=== PATIENT | female | born 1955 | race Caucasian/White ===

== ENCOUNTER 2020-09-20 13:04 | Inpatient (IN) | payer MEDICAID, SELFPAY ==
[~2020-09-20] VITALS: Ht 152.4 cm; Wt 85.5 kg
[2020-09-20 13:06] VITALS: Ht 152.4 cm; Wt 85.5 kg
[2020-09-20 14:24] LABS: BASOPHIL % 0.3 % (0-2); PLATELET COUNT 144 x10^3mcL (130-400)
[2020-09-20 14:25] LABS: CALCIUM 9.7 mg/dL (8.5-10.1); CARBON DIOXIDE 29.4 mmol/L (21-32); CHLORIDE SERUM 106 mmol/L (98-107); CREATININE SERUM 0.8 mg/dL (0.6-1.0); GFR1 > 60 mL/min; GLUCOSE SERUM 211 mg/dL (74-106); POTASSIUM SERUM 4.3 mmol/L (3.5-5.1); SODIUM SERUM 140 mmol/L (136-145)
[2020-09-20 14:29] LABS: ALBUMIN 3.4 g/dL (3.4-5.0); ALKALINE PHOSPHATASE 127 U/L (46-116); ALT/SGPT 52 U/L (14-59); AST/SGOT 48 U/L (15-37); BILIRUBIN TOTAL 0.6 mg/dL (0.20-1.00); C REACTIVE PROTEIN 1.7 mg/dL (<=0.9); LACTIC DEHYDROGENASE (LDH) 240 U/L (100-190); TOTAL PROTEIN, SERUM 6.9 g/dL (6.4-8.2)
[2020-09-20 14:57] LABS: UA SPECIFIC GRAVITY 1.015 (1.005-1.035); microscopic required? YES; urine erythrocyte NEGATIVE (NEGATIVE)
[2020-09-20] MEDS ORDERED: ASPIRIN CHILDRE81 MG (16:16)
[2020-09-20] MEDS ORDERED: SIMVASTATIN5 M2 PO (16:16)
[2020-09-20] MEDS ORDERED: INSULIN SYRING1 EA29 MC (16:17)
[2020-09-20] MEDS ORDERED: GRALISE600 MG PO (16:18)
[2020-09-20] MEDS ORDERED: ACID REDUCER20 MG PO (16:18)
[2020-09-20] MEDS ORDERED: FORTAMET500 M1 PO (16:18)
[2020-09-20 16:24] LABS: FREE T4 0.97 ng/dL (0.76-1.46); FREE THYROXINE INDEX 2.3 ug/dL (1.4-4.5); T4(THYROXINE) 7.5 ug/dL (4.7-13.3)
[2020-09-20 16:43] LABS: T3 TOTAL 1.09 ng/mL
[2020-09-20 17:02] VITALS: BP 137/59
[2020-09-20 21:43] VITALS: BP 139/50
[2020-09-21 06:39] VITALS: BP 127/55
[2020-09-21 07:14] LABS: BASOPHIL % 0.3 % (0-2); PLATELET COUNT 138 x10^3mcL (130-400)
[2020-09-21 07:44] LABS: CALCIUM 9.3 mg/dL (8.5-10.1); CARBON DIOXIDE 33.6 mmol/L (21-32); CHLORIDE SERUM 106 mmol/L (98-107); CREATININE SERUM 0.8 mg/dL (0.6-1.0); GFR1 > 60 mL/min; GLUCOSE SERUM 184 mg/dL (74-106); MAGNESIUM 1.1 mg/dL (1.8-2.4); PHOSPHOROUS 3.9 mg/dL (2.5-4.9); POTASSIUM SERUM 4.3 mmol/L (3.5-5.1); SODIUM SERUM 144 mmol/L (136-145)
[2020-09-21 09:04] VITALS: BP 134/40
[2020-09-21 09:12] LABS: RED CELL DISTRIBUTION WIDTH 15.7 % (11.5-14.5)
[2020-09-21 14:01] VITALS: BP 146/56
[2020-09-21 17:36] VITALS: BP 160/77
[2020-09-21 20:22] VITALS: BP 130/43
[2020-09-22 06:04] VITALS: BP 159/59
[2020-09-22 06:53] LABS: BASOPHIL % 0.4 % (0-2); PLATELET COUNT 132 x10^3mcL (130-400)
[2020-09-22 07:08] LABS: MAGNESIUM 1.7 mg/dL (1.8-2.4); PHOSPHOROUS 4.4 mg/dL (2.5-4.9); POTASSIUM SERUM 4.2 mmol/L (3.5-5.1)
[2020-09-22 08:15] LABS: RED CELL DISTRIBUTION WIDTH 14.8 % (11.5-14.5)
[2020-09-22 08:32] VITALS: BP 173/60
[2020-09-22] MEDS ORDERED: APAP EXTRA STR500 MG PO (12:02)
[2020-09-22] MEDS ORDERED: IBU600 M2 PO (12:04)
[2020-09-22] MEDS ORDERED: MICROZIDE12.5 MG PO (12:12)
[2020-09-22] MEDS ORDERED: LOTENSIN20 MG PO (12:13)
[2020-09-22 12:57] VITALS: BP 127/48
[2020-09-22 16:06] VITALS: BP 129/36
[2020-09-22 20:03] VITALS: BP 144/60
[2020-09-23 05:58] VITALS: BP 109/54
[2020-09-23 07:00] LABS: BASOPHIL % 0.2 % (0-2); PLATELET COUNT 144 x10^3mcL (130-400)
[2020-09-23 07:19] LABS: CALCIUM 9.4 mg/dL (8.5-10.1); CARBON DIOXIDE 34.6 mmol/L (21-32); CREATININE SERUM 1.6 mg/dL (0.6-1.0); MAGNESIUM 1.6 mg/dL (1.8-2.4); PHOSPHOROUS 4.1 mg/dL (2.5-4.9); POTASSIUM SERUM 3.7 mmol/L (3.5-5.1); RED CELL DISTRIBUTION WIDTH 15.1 % (11.5-14.5)
[2020-09-23 08:40] VITALS: BP 97/38
[2020-09-23 13:06] VITALS: BP 102/31
[2020-09-23 16:52] VITALS: BP 106/39
[2020-09-23 20:20] VITALS: BP 115/41
[2020-09-24 05:34] VITALS: BP 94/50
[2020-09-24 07:25] LABS: BASOPHIL % 0.4 % (0-2); PLATELET COUNT 143 x10^3mcL (130-400)
[2020-09-24 07:53] LABS: CALCIUM 9.1 mg/dL (8.5-10.1); CREATININE SERUM 1.7 mg/dL (0.6-1.0); MAGNESIUM 2.4 mg/dL (1.8-2.4); PHOSPHOROUS 5.5 mg/dL (2.5-4.9); POTASSIUM SERUM 3.7 mmol/L (3.5-5.1)
[2020-09-24 08:38] VITALS: BP 101/30
[2020-09-24 08:49] LABS: RED CELL DISTRIBUTION WIDTH 15.4 % (11.5-14.5)
[2020-09-24 10:51] VITALS: BP 101/50
[2020-09-24 13:40] VITALS: BP 110/46
[2020-09-24] MEDS ORDERED: LASIX40 MG PO (16:03)
[2020-09-24] MEDS ORDERED: COREG6.25 M1 PO (16:04)
[2020-09-24 17:03] VITALS: BP 109/38
[2020-09-24 18:00] VITALS: BP 105/48
== END 2020-09-24 19:34 | disposition home or self-care (01) | DRG 190 ==
LOC: ED 13:04 → DU 14:20
PROVIDERS: Emergency Medicine; ADMIT Internal Medicine; ATTEND Internal Medicine
DX: I21.4 Non-ST elevation (NSTEMI) myocardial infarction (principal); I50.33 Acute on chronic diastolic (congestive) heart failure; E11.40 Type 2 diabetes mellitus with diabetic neuropathy, unspecified; E11.65 Type 2 diabetes mellitus with hyperglycemia; E83.42 Hypomagnesemia; D64.9 Anemia, unspecified; I11.0 Hypertensive heart disease with heart failure; J45.909 Unspecified asthma, uncomplicated; M19.90 Unspecified osteoarthritis, unspecified site; I16.0 Hypertensive urgency; I25.10 Atherosclerotic heart disease of native coronary artery without angina pectoris; Z20.828 Contact with and (suspected) exposure to other viral communicable diseases; Z95.818 Presence of other cardiac implants and grafts; Z79.899 Other long term (current) drug therapy; Z79.82 Long term (current) use of aspirin
CPT/HCPCS: 82962; 83880; 84439; 85378; 87804; 90732; G0378; J1644; J1650; J1815; J1940; J3475; J7030; U0003